=== PATIENT | male | born 1990 | race Two or more races ===

== ENCOUNTER 2023-12-04 07:17 | Emergency (ER) | payer OTHER ==
[~2023-12-04] VITALS: Ht 172.7 cm; Wt 78.9 kg
[~2023-12-04 07:17] MED LIST: DICLOFENAC POTA50 MG PO; LEVSIN/SL0.125 MG SL; PEPCID40 MG PO
[2023-12-04] MEDS ORDERED: RINGERS SOLUTION,LACTATED 250 ML IV STA (08:22)
[2023-12-04] MEDS ORDERED: DEXTROSE 5 % AND 0.9 % NACL 1,000 ML IV STA (08:23)
[2023-12-04] MEDS ORDERED: ONDANSETRON HCL 2 MG/ML VIAL IV STA (08:24)
[2023-12-04] MEDS ORDERED: FAMOtidine 10 MG/ML (4ML VIAL) IV PUSH STA (08:24)
[2023-12-04] MEDS ORDERED: BISMUTH SUBSALICYLATE 524 MG/30 ML BLIST.PACK PO STA (08:24)
[2023-12-04 09:02] LABS: HEMATOCRIT 46.4 % (39.0-48.0); HEMOGLOBIN 16.1 g/dL (13-16.00); MEAN CELL VOLUME 86.8 fL (80.0-100.00); MEAN CORPUSCULAR HEMOGLOBIN 30.1 pg (27.00-32.0); MEAN CORPUSCULAR HGB CONC 34.7 g/dl (32.0-36.0); PLATELET COUNT 213 K/uL (150-450); RED BLOOD COUNT 5.34 M/uL (4.00-6.00); RED CELL DISTRIBUTION WIDTH 13.1 % (11.5-14.5)
[2023-12-04 09:20] LABS: CALCIUM 9.3 mg/dL (8.5-10.1); CREATININE SERUM 1.1 mg/dL (0.70-1.30); GFR 76.63; POTASSIUM 3.86 mEq/L (3.5-5.1)
[2023-12-04 10:22] LABS: PH,URINE 5.5 (5.0-8.0); URINE APPEARANCE Turbid; URINE BACTERIA 20.1 uL (0.0-1933); URINE BILIRRUBIN Small (NEGATIVE); URINE BLOOD Negative; URINE COLOR Dark Yellow; URINE EPITHELIAL CELLS 11.8 uL (0.0-38.8); URINE GLUCOSE Negative (NEGATIVE); URINE LEUKOCYTE Negative; URINE NITRATE Negative; URINE PROTEIN Trace (NEGATIVE); URINE UROBILINOGEN 0.2 E.U./dl; URINE WBC 10.2 uL (0.0-23.2)
[2023-12-04 10:47] LABS: URINE EPITHELIAL CELLS 0-4 /HPF
== END 2023-12-04 12:26 | disposition home or self-care (01) ==
LOC: ER 07:17
PROVIDERS: Emergency Medicine
DX: K52.89 Other specified noninfective gastroenteritis and colitis (principal); E86.0 Dehydration; Z88.8 Allergy status to other drugs, medicaments and biological substances